=== PATIENT | female | born 1990 | race Caucasian/White ===

== ENCOUNTER 2016-12-24 14:14 | Inpatient (IN) | payer OTHER ==
[~2016-12-24] VITALS: Ht 175.3 cm; Wt 83.9 kg
[~2016-12-24 14:14] MED LIST: NORG1TAB14 PO
[2016-12-24] MEDS ORDERED: Lactated Ringer's 1,000 ML IV PRN (20:22)
[2016-12-24] MEDS ORDERED: Oxytocin 10 Unit/mL Inj IM PRN (20:25)
[2016-12-24] MEDS ORDERED: Oxytocin 30 Units/500 mL LR 30 UNITS in IV Premix 1 EACH IV PRN (20:25)
[2016-12-24] MEDS ORDERED: Sodium Chloride LOK Flush 10 mL Syringe IVFLUSH PRN (20:25)
[2016-12-24] MEDS ORDERED: Methylergonovine 0.2 mg/mL Inj IM PRN (20:25)
[2016-12-24] MEDS ORDERED: Carboprost 250 mCg/mL Inj IM PRN (20:25)
[2016-12-24] MEDS ORDERED: Hemorrhage Kit, Post Partum XX ONE (20:25)
[2016-12-24 20:31] LABS: Mean Corpuscular Hemoglobin 29.6 pg (27.0-35.0); Mean Corpuscular Volume 92.4 fL (81-100)
[2016-12-24] MEDS: Lactated Ringer's 1,000 ML IV SCH (20:46)
[2016-12-25] MEDS: Lactated Ringer's 1,000 ML IV SCH ×7 (04:46→22:10)
[2016-12-25] MEDS ORDERED: Lactated Ringer's 500 ML IV ONE (08:28)
--- NOTE | 2016-12-25 08:28 | PCM.HPANE ---
Patient Data Date of Service: Dec 25, 2016 (0800) Surgeon Admitting Provider:Ajith Kahn MD Attending Provider:Ajith Kahn MD Primary Care Physician:Ajith Kahn MD Other Provider:Burak Randhawa Anesthesia Reason for Visit Induction INDUCTION Ht/WT & BMI Body Mass Index Allergies Coded Allergies: No Known Allergies (Unverified Allergy, 06/01/12) Past Anesthesia History Anesthesia History: Denies:: Abnormal Airway, Anesthesia Reactions, Difficult Intubation Diabetes History Hx Diabetes?: No MRSA MRSA: No Medications Reported Medications Norgestimate-Ethinyl Estradiol (Sprintec)1 Tab Tablet1 Tab PO DAILY 06/02/12 History History of ENT Problems?: No HEENT History: Denies:: Abnormal Airway Cataracts Difficult Intubation Dysphagia Glaucoma Hearing Problem Sinus Problem TMJ Denture Type: None Teeth Condition: Within Normal Limits Hx of Heart Problems?: No Cardiovascular History: Denies:: AICD Abdominal Aortic Aneurism Atrial Fibrillation Cardiac Surgery Chest Pain Congestive Heart Failure Coronary Artery Disease Edema Heart Murmur Hypertension Irregular Heartbeat Pacemaker Peripheral Vascular Rheumatic Fever Thrombophlebitis Valvular Heart Disease Hx of Respiratory Problem?: No Respiratory History: Denies:: Asthma COPD Chest Surgery Cough Dyspnea Emphysema Hemoptysis Oxygen Administration Pneumonia Pulmonary Embolism Tuberculosis Use of C-PAP Machine Use of Inhalers / NEBS Hx Neurologic Problems?: No Neurological History: Denies:: Alzheimer's Disease CVA Dementia Dizziness Headaches Multiple Sclerosis Parkinson's Disease Peripheral Neuropathy Seizures TIA Hx of GI Problems?: Yes (cholestasis of ) Gastrointestinal History: Denies:: Cirrhosis Diverticulitis Gall Bladder Disease Gastroesphageal Reflux Gastrointestinal Bleeding Heartburn Hepatitis Hiatal Hernia Liver Disease Rectal Bleeding Hx of Problems?: No Genitourinary History: Denies:: HX of Hemodialysis Kidney Stones Urinary Tract Infection Female Hx: Positive for:: Currently Denies:: Endometriosis Pelvic Inflammatory Problems with Breasts? Skin History: Denies:: History Skin Disorders? Pressure Ulcers Hx Musculoskeletal Problems?: No Musculoskeletal History: Denies:: Back Injury Degenerative Joint Fibromyalgia Joint Replacement Musculoskeletal Trauma Myasthenia Gravis Osteoarthritis Rheumatoid Arthritis Systemic Lupus Hx of Psycho/Social Problems?: No Psycho Social History: Denies:: Anxiety Bipolar Disorder Hx Depression Suicide Attempt Hx Surgeries?: Yes (current appendectomy) Hx Any Other Health Problems?: No Other History: Denies:: Hospitalization History Blood Transfusions: Denies:: Blood Transfusions Hx Diabetes: No Hx Alcohol Use: NoHx Substance Use: No Smoking Status: Never Smoker Stop/Bang Treated for Sleep Apnea?: No Do You Have a CPAP Machine?: No S-Snoring: Do You Snore Loudly: No T-Tired: feel tired, fatigued: No O-Obsered: Observed not breath: No P-Blood Pressure: treated: No KRISTIN Risk Assessment: Low Risk, <3 Yes Risk Assessment Category Category 1A: Patient has history of documented sleep apnea, and HAS NOT received any narcotic, sedative or anesthesia administration during this stay. Category 1B: Patient has history of documented sleep apnea, and HAS received any narcotic , sedative or anesthesia administration during this stay Category 2: Patient has SUSPECTED Obstructive Sleep Apnea, and HAS received any narcotic , sedative or anesthesia administration during this stay. Category 3: Patient has SUSPECTED Obstructive Sleep Apnea and HAS NOT received narcotic, sedative or anesthesia administration during this stay. Category 4: Outpatient in Procedural Areas with known sleep apnea or who screen positive for High Risk via the STOP/BANG questionnaire. Exam Exam General Appearance: Alert, Oriented X3, Mild Distress HEENT/AIRWAY: MP 1 Lungs: Clear to Auscultation Heart: Exam Unremarkable Meds/Labs/Diagnostics Labs Test 12/24/16 19:00 White Blood Count 9.6th/mm3 (3.8-10.1) Red Blood Count 4.22mil/mm3 (3.90-5.20) Hemoglobin 12.5g/dL (12.0-15.6) Hematocrit 39.0% (35.0-46.0) Mean Corpuscular Volume 92.4fL (81-100) Mean Corpuscular Hemoglobin 29.6pg (27.0-35.0) Mean Corpuscular Hemoglobin Concent 32.1% (32.0-37.0) Red Cell Distribution Width 12.5% (12.3-15.4) Platelet Count 174bil/L (150-400) Plan Impression Patient chart reviewed, patient interviewed and anesthestic plan with risks, benefits, and alternatives discussed, and informed consent obtained. NPO per Anesth. Guidelines: Yes ASA Physical Status: ASA2 Mod Systemic Disease Anesthetic Plan: Epidural Bene/Risks/Altern/Consents: Yes HP Complete Prior to Induction: Yes Jarrett Lu MD Dec 25, 2016 08:28
[2016-12-25] MEDS ORDERED: Ondansetron 2 mg/mL 2 mL Inj IVPUSH PRN (08:30)
[2016-12-25] MEDS ORDERED: EPHEDrine Sulfate 50 mg/mL Inj IVPUSH PRN (08:30)
[2016-12-25] MEDS: Sodium Chloride LOK Flush 10 mL Syringe IVFLUSH SCH ×2 (08:30→16:30)
[2016-12-25] MEDS ORDERED: Atropine 1 mg/10 mL (Code) Syringe IVPUSH PRN (08:30)
[2016-12-25] MEDS ORDERED: fentaNYL 2 mCg/mL-Bupiv 0.125% 100 ML EPIDURAL SCH (08:30)
[2016-12-25] MEDS ORDERED: Carboprost 250 mCg/mL Inj IM PRN (14:10)
[2016-12-25] MEDS ORDERED: Witch Hazel-Glycerin Pads TOPICAL PRN (14:10)
[2016-12-25] MEDS ORDERED: Influenza (Adult) Vaccine 0.5 mL Syringe IM ONE (14:10)
[2016-12-25] MEDS ORDERED: Oxytocin 30 Units/500 mL LR 30 UNITS in IV Premix 1 EACH IV PRN (14:10)
[2016-12-25] MEDS ORDERED: TdaP Vaccine 0.5 mL Inj IM ONE (14:10)
[2016-12-25] MEDS ORDERED: Methylergonovine 0.2 mg/mL Inj IM PRN (14:10)
[2016-12-25] MEDS ORDERED: Benzocaine (Dermoplast) 20% 60 Gm Spray TOPICAL PRN (14:10)
[2016-12-25] MEDS ORDERED: Oxytocin 10 Unit/mL Inj IM PRN (14:10)
[2016-12-25] MEDS ORDERED: Measles-Mumps-Rubella Vaccine 0.5 mL Inj SUBQ ONE (14:10)
[2016-12-25] MEDS ORDERED: HYDROcodone-APAP 5-325 mg Tablet PO PRN (14:10)
[2016-12-25] MEDS ORDERED: Hemorrhage Kit, Post Partum XX ONE (14:10)
[2016-12-25] MEDS: LANOlin HPA 7 Gm Ointment TOPICAL PRN (16:03)
[2016-12-26] MEDS: Lactated Ringer's 1,000 ML IV SCH ×4 (00:28→08:28)
[2016-12-26] MEDS: Sodium Chloride LOK Flush 10 mL Syringe IVFLUSH SCH ×2 (00:30→08:30)
[2016-12-26] MEDS: LANOlin HPA 7 Gm Ointment TOPICAL PRN (05:36)
[2016-12-26 07:23] LABS: Mean Corpuscular Volume 92.6 fL (81-100)
--- NOTE | 2016-12-26 08:20 | HP ---
[address] [address] HISTORY AND PHYSICAL PATIENT: CONCETTA BRAR : 1990 MR#: [id number] ADMIT: 12/24/2016 JOB ID: [id number] [facility] DATE: 12/24/2016 at 1900 hours. SUBJECTIVE: The patient has been followed prenatally at [facility], see record for details. She has reached approximately 39-1/2 weeks of gestation, and she requested labor induction this week as she has had favorable cervix and as she was concerned regarding size. However, note that she began experiencing itching of the palms of her hands and soles of her feet very recently, without obvious rash, and with some associated other body itching. Concern was for cholestasis of , and note that alkaline phosphatase was greater than 300 and AST and ALT were each greater than 50 consistent with mild elevation, although total serum bile acids are not back by the time of admission. With new onset of itching as described, labs thus far have been supportive of cholestasis of and with a change in movement to less very recently. Decision was made to move up induction and have patient come in the evening of December 24, 2016 to move sooner towards delivery due to the unpredictable nature of cholestasis of in regard to health. In summary, then, this patient was admitted to [facility] in the evening of December 24, 2016 for labor induction. PHYSICAL EXAMINATION: On admission, vital signs stable. Afebrile. Neck no thyromegaly. Lungs are clear to auscultation and percussion. Heart regular in rate and rhythm. Abdomen: Fundal height a little greater than dates. Note, ultrasound about a week ago suggested about 8-1/3 pounds, and cervix was 4 cm dilated and 70% effaced, bag of water intact, vertex. IMPRESSION: 1. A 39-1/2 week . 2. Suspected cholestasis of . 3. See record for additional details. PLAN: The patient was admitted to [facility] on December 24, 2016 in the evening for labor induction, anticipating vaginal delivery.
--- NOTE | 2016-12-26 09:44 | PCM.DIOB ---
Obstetrical Disch Instruction Dates of Hospitalization Date of Hospital Admission Dec 24, 2016 at 18:50 Providers Admitting Physician: Ajith Kahn MD Primary Care Physician: Ajith Kahn MD Attending Physician: Ajith Kahn MD Discharge Diagnosis Problems: (1) Cholestasis of Status: Acute ICD Code: O26.619 (2) Status: Acute ICD Code: Z33.1 Diet Discharge Diet: No restrictions Activity Discharge Activity-General: Pelvic Rest for 6 weeks Dressing and Incisional Care Hygiene: May shower, Perineal care, Sitz bath, Dermoplast spray, Witch Fransisca pads, Ice Follow Up Plan Follow-up appointment: Weeks (Follow up in 6 weeks for checkup.) Call your provider for: Fever or Chills, Shortness of breath, Heavy vaginal bleeding, Red painful breasts Ajith Kahn MD Dec 26, 2016 09:44
[2016-12-26] MEDS ORDERED: DOCU-41 PO (09:45)
[2016-12-26] MEDS ORDERED: IBUP-1827 PO (09:45)
[2016-12-26 11:12] VITALS: BP 114/57; PULSE 56; RESP 18
--- NOTE | 2016-12-27 00:42 | OP ---
[address] [address] OPERATIVE REPORT PATIENT: CONCETTA BRAR : 1990 MR#: [id number] ADMIT: 12/24/2016 JOB ID: [id number] DATE OF SURGERY: 12/25/2016 SURGEON: PREOPERATIVE DIAGNOSIS(ES): POSTOPERATIVE DIAGNOSIS(ES): [facility] NOTE: The patient was admitted to [facility] in the evening of December 24, 2016, in the setting of term with suspected cholestasis of . She was admitted for labor induction, and Pitocin therapy was initiated and stayed on overnight. Ultimately, in the morning of December 25, 2016, spontaneous rupture of membranes occurred, clear fluid was recovered, and intrauterine pressure catheter was placed. Pitocin therapy was initiated, now with the assistance of intrauterine pressure monitoring and contractions became more and more consistently intense. Epidural was provided for pain management at patient's request and the patient was observed. She then progressed more rapidly through the active phase of labor and then was soon completely dilated. The patient learned to push well and head steadily descended, a gradual process. Caput formed. Once , head then delivered, followed by the shoulders, body and extremities. Baby was active, crying and vigorous upon delivery. After one minute of delay, umbilical cord was clamped and cut, and cord blood was obtained for routine studies. Betadine solution was used to cleanse the vulvovaginal region. There were noted two lacerations, one in the right-sided perineal region, consistent with second-degree, yet note also similar, although smaller, finding on the right. Chromic suture 3-0 was utilized to close these lacerations, and local anesthesia was also utilized. Hemostasis was noted to be complete and there was no hematoma formation. We awaited separation of the placenta and membranes, which ultimately occurred, intact. Uterus contracted well with massage plus intravenous Pitocin infusion. There was approximately 300 cc blood loss, only scant at procedure's close. Instrument, needle and sponge counts were all found to be correct. It certainly is anticipated that mother and baby will do very well during the timeframe.
--- NOTE | 2017-01-01 00:09 | DIS ---
[address] [address] DISCHARGE SUMMARY PATIENT: CONCETTA BRAR : 1990 MR#: [id number] ADMIT: 12/24/2016 JOB ID: [id number] DIS: 12/26/2016 DISCHARGE DIAGNOSES: 1. Term , delivered. 2. Suspected cholestasis of . PROCEDURES PERFORMED DURING HOSPITALIZATION: 1. Labor induction. 2. Epidural anesthesia. 3. Vaginal delivery. 4. Repair of vulvovaginal lacerations. HOSPITAL COURSE: The patient was admitted to [facility] on December 24, 2016, in the setting of term , with suspected cholestasis of . The patient had very recently developed itching of palms of the hands and feet, and with mildly elevated liver enzymes, elevated alkaline phosphatase, and with total serum bile acids at greater than 20, in the upper limits of normal range, collectively raising suspicion for cholestasis of . Pitocin therapy was initiated in the setting of favorable cervix, and provided overnight from December 24, 2016, into December 25, 2016, and ultimately spontaneous rupture membranes occurred, intrauterine pressure catheter was placed, epidural was provided for pain management, and vaginal delivery ultimately occurred, then with repair of vulvovaginal lacerations. During the timeframe, the patient did very well, with stable vitals, afebrile, with reasonable bleeding and pain management, ambulating and voiding, and handling the baby well. Nursing efforts were good. The patient requested discharge to home on the first day. DISCHARGE PROGRAM: The patient will call p.r.n. heavy bleeding or high fever or other problem, yet otherwise she will follow up at six weeks for checkup with Dr. Kahn. She will observe pelvic rest for six weeks. The patient will use vitamin daily while nursing, and she has also been given prescriptions for narcotic, ibuprofen, and stool softener.
== END 2016-12-26 11:25 | disposition home or self-care (01) | DRG 775 ==
LOC: FBC 18:50
PROVIDERS: ADMIT Obstetrics & Gynecology; ATTEND Obstetrics & Gynecology
PROC: 10E0XZZ Delivery of Products of Conception, External Approach (ICD-10-PCS; principal; 2016-12-25)
PROC: 0KQM0ZZ Repair Perineum Muscle, Open Approach (ICD-10-PCS; 2016-12-25)
PROC: 3E033VJ Introduction of Other Hormone into Peripheral Vein, Percutaneous Approach (ICD-10-PCS; 2016-12-25)
DX: O26.62 Liver and biliary tract disorders in childbirth (principal); K83.1 Obstruction of bile duct; Z3A.39 39 weeks gestation of pregnancy; Z37.0 Single live birth; O70.1 Second degree perineal laceration during delivery